=== PATIENT | female | born 1955 | race Caucasian/White ===

== ENCOUNTER 2018-04-17 10:50 | Outpatient (CLI) | payer MEDICARE, OTHER ==
--- NOTE | 2018-04-17 13:17 | XRAY Report ---
Reason: R HIP PAIN Procedure Date: 04/17/2018 Accession Number: [id number] / [id number] Procedure: XR - Hip w/Pelvis 2-3V RT CPT Code: FULL RESULT: EXAM: RIGHT HIP AND PELVIS RADIOGRAPHY EXAM DATE: 04/17/2018 11:21 AM. HISTORY: Right hip pain. COMPARISONS: None. TECHNIQUE: 1 view of the pelvis and 1 view of the hip. FINDINGS: Bones: Normal. No fracture or bone lesion. Joints: There is bilateral femoroacetabular joint space narrowing in a medial migration pattern, moderate and right greater than left. The pubis symphysis, and sacroiliac joints are preserved. Soft Tissues: Normal. No soft tissue swelling. IMPRESSION: Moderate degenerative disease of the hip joints as described. [facility]
== END 2018-04-17 10:51 | disposition home or self-care (01) ==
LOC: DI 10:50
PROVIDERS: ATTEND Internal Medicine
DX: M16.0 Bilateral primary osteoarthritis of hip (principal)